=== PATIENT | female | born 1950 | race African-American/Black ===

== ENCOUNTER 2020-05-04 15:01 | Emergency (ER) | payer MEDICARE ==
[~2020-05-04] VITALS: Ht 172.7 cm; Wt 100.0 kg
[~2020-05-04 15:01] MED LIST: BENA40TA9 PO; BUPR75TA8; FLUT1DIS3 IH; METF25CR; TRAZ-252 PO
[2020-05-04] MEDS ORDERED: ACETAMINOPHEN 500MG TABLET PO ONE (17:15)
[2020-05-04] MEDS ORDERED: BACITRACIN ZINC OINT UDPKT TOP ONE (17:15)
[2020-05-04 21:44] VITALS: BP 166/86
== END 2020-05-04 21:46 | disposition home or self-care (01) ==
LOC: ER 15:01
DX: S22.32XA Fracture of one rib, left side, initial encounter for closed fracture (principal); S05.12XA Contusion of eyeball and orbital tissues, left eye, initial encounter; H11.32 Conjunctival hemorrhage, left eye; S61.451A Open bite of right hand, initial encounter; I10 Essential (primary) hypertension; Y04.0XXA Assault by unarmed brawl or fight, initial encounter; Y04.1XXA Assault by human bite, initial encounter; Y07.410 Brother, perpetrator of maltreatment and neglect; Y93.89 Activity, other specified; Y92.018 Other place in single-family (private) house as the place of occurrence of the external cause; Y99.8 Other external cause status
CPT/HCPCS: 70486; 71250; 93005; 99284; 99285